=== PATIENT | female | born 1955 | race Caucasian/White ===

== ENCOUNTER 2024-07-27 06:10 | Day surgery (SDC) | payer OTHER, SELFPAY ==
[2024-07-27] VITALS (9 sets, daily range): BP systolic 123–144; BP diastolic 57–77; PULSE 67–86; RESP 16; TEMP 36.6; O2SAT 96–98; BMI 23.0
--- OUTSIDE RECORDS SUMMARY | 2024-07-27 06:13 | XMS_ITS | Encounter Summary ---
Author Organization [place] Address [address] [facility] [place] [address] Care Team Providers Care Freelance Digital Project Manager Name Role Phone Trenton Marie MD Primary Care Provide r Nancy Richardson STATIONARY STEAM ENGINEER CONCRETE ENGINEERING TECHNICIAN Unavailable [phone] Josefa Isaac PA-C Unavailable [phone] Nancy Richardson STATIONARY STEAM ENGINEER CONCRETE ENGINEERING TECHNICIAN Unavailable [phone] Nancy Richardson STATIONARY STEAM ENGINEER CONCRETE ENGINEERING TECHNICIAN Primary Care Provider + Josefa IsaacC Unavailable Natalie Cooley MD Unavailable [phone] Josefa IsaacC Unavailable [phone] Dahlia Velasquez Unavailable Kaur Mcconnell MD Unavailable Josefa IsaacC Unavailable [phone] Encounter Details Date Type Department Care Team (Late st Contact Info) Description 01/31/2021 Whit Alvarez [facility] [address] [place] [address] Nancy Richardson, STATIONARY STEAM ENGINEER CONCRETE ENGINEERING TECHNICIAN [address] [place] [address] Social History Tobacco Use Types Packs/Day Years Used Date Smoking Tobacco: Never Smokeless Tobacco: Never Alcohol Use Standard Drinks/Week Comments Yes 0 (1 standard drink = 0.6 oz pur e alcohol) PHQ-2 Answer Date Recorded PHQ-2 Score 0 09/08/2020 Comments No Sex and Gender Information Value Date Recorded Sex Assigned at Female 06/22/2019 11:03 AM BREAD JOCKEY Legal Sex Female 4:56 AM BREAD JOCKEY Gender Identity Female 06/22/2019 11:03 AM BREAD JOCKEY Sexual Orientation Straight 06/22/2019 11 :03 AM BREAD JOCKEY 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 No / Unsure 02/01/2021 11:11 AM CDT documented as of this encounter Miscellaneous Notes * Telephone Encounter - Marina Perera RN - 01/31/2021 4:50 PM CDT [employer] message to pt Marina Perera RN [facility] * Telephone Encounter - Gosia Kline RN - 01/31/2021 2:04 PM CDT Response sent to patient via [employer]. Gosia Kline RN [facility] documented in this encounter Plan of Treatment Not on file documented as of this encounter Visit Diagnoses Not on filedocumented in this encounter Care Teams Freelance Digital Project Manager Relationship Specialty Start Date End Date Trenton Marie MD [address] [place] [address] PCP - General Family Practice 02/03/13 08/16/21 Nancy Richardson APRN CONCRETE ENGINEERING TECHNICIAN [address] [address] PCP - General Nurse Practitioner - Family 08/17/21 Nancy Richardson APRN CONCRETE ENGINEERING TECHNICIAN [address] [address] Nurse Practitioner Nurse Practitioner - Family 03/29/15 Josefa Isaac PA-C [address] [place] [address] [id number] Assigned Surgical Provider 08/10/20 07/08/21 Nancy Richardson APRN CONCRETE ENGINEERING TECHNICIAN [address] [address] Assigned PCP 09/18/20 Josefa Isaac PA-C [address] [place] [address] [phone] Physician Active Directory Architect Dermatology 08/24/21 Natalie Cooley MD [address] [place] [address] [id number] Assigned Heart and Vascular Provider 11/18/21 05/17/23 Josefa Isaac PA-C [address] [place] [address] [phone] Assigned Surgical Provider 01/06/22 07/18/23 Dahlia Velasquez AuD [address] [place] [address] Historical Archeologist Audiology 10/24/22 Kaur Mcconnell MD [address] [place] [address] Assigned Surgical Provider 07/19/23 12/16/23 Josefa Isaac, PAYasminC [address] [place] [address] [phone] Assigned Surgical Provider 12/17/23 documented as of this encounter
--- OUTSIDE RECORDS SUMMARY | 2024-07-27 06:13 | XMS_ITS | Encounter Summary ---
Author Organization [place] Address [address] [facility] [place] [address] Care Team Providers Care Crane Service Technician Name Role Phone Nancy Richardson APRN OPTIONS TRADER Unavailable [phone] Nancy Richardson SILK TOP HAT BODY MAKER OPTIONS TRADER Unavailable [phone] Nancy Richardson SILK TOP HAT BODY MAKER OPTIONS TRADER Primary Care Provider + Josefa Isaac PA-C Unavailable [phone] Natalie Cooley MD Unavailable [phone] Josefa Isaac PA-C Unavailable Dahlia Velasquez AuD Unavailable [phone] Kaur Mcconnell MD Unavailable Josefa Isaac PA-C Unavailable [phone] Encounter Details Date Type Department Care Team (Late st Contact Info) Description 07/13/2022 [facility] [place] [id number] [facility] [address] [place] [address] Fracnes Lundberg Social History Tobacco Use Types Packs/Day Years Used Date Smoking Tobacco: Never Smokeless Tobacco: Never Alcohol Use Standard Drinks/Week Comments Yes 0 (1 standard drink = 0.6 oz pur e alcohol) PHQ-2 Answer Date Recorded PHQ-2 Score 0 10/04/2021 Comments No Sex and Gender Information Value Date Recorded Sex Assigned at Female 06/22/2019 11:03 AM TIMBER TREATMENT PLANT OPERATOR Legal Sex Female 4:56 AM TIMBER TREATMENT PLANT OPERATOR Gender Identity Female 06/22/2019 11:03 AM TIMBER TREATMENT PLANT OPERATOR Sexual Orientation Straight 06/22/2019 11 :03 AM TIMBER TREATMENT PLANT OPERATOR 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 Not on file Not on file Not on file Not on file Not on file documented as of this encounter Plan of Treatment Not on file documented as of this encounter Visit Diagnoses Not on filedocumented in this encounter Care Teams Crane Service Technician Relationship Specialty Start Date End Date Nancy Richardson APRN OPTIONS TRADER [address] [place] [address] PCP - General Nurse Practitioner - Family 08/17/21 Nancy Richardson APRN OPTIONS TRADER [address] [place], [place] [address] Nurse Practitioner Nurse Practitioner - Family 03/29/15 Nancy Richardson APRN OPTIONS TRADER [address] [place] [address] Assigned PCP 09/18/20 Josefa Isaac PA-C [address] [place] [address] [id number] Physician Training Specialist Dermatology 08/24/21 Natalie Cooley MD [address] [place] [address] [id number] Assigned Heart and Vascular Provider 11/18/21 05/17/23 Josefa Isaac PA-C [address] [place] [address] [phone] Assigned Surgical Provider 01/06/22 07/18/23 Dahlia Velasquez AuD [address] [place], [place] [phone] Peanut Butter Maker Audiology 10/24/22 Kaur Mcconnell MD [address] [place] [address] [id number] Assigned Surgical Provider 07/19/23 12/16/23 Josefa Isaac, PAYasminC [address] [place] [address] [phone] Assigned Surgical Provider 12/17/23 documented as of this encounter
--- OUTSIDE RECORDS SUMMARY | 2024-07-27 06:13 | XMS_ITS | Encounter Summary ---
Author Organization [place] Address [address] [facility] [place] [address] Care Team Providers Care Slackline Operator Name Role Phone Nancy Richardson APRN BRICK HANDLER Unavailable [phone] Nancy Richardson COPYRIGHT EXPERT BRICK HANDLER Unavailable [phone] Nancy Richardson COPYRIGHT EXPERT BRICK HANDLER Primary Care Provider + Josefa Isaac PA-C Unavailable Natalie Cooley MD Unavailable [phone] Josefa IsaacC Unavailable Dahlia Velasquez AuD Unavailable Kaur Mcconnell MD Unavailable Josefa Isaac PA-C Unavailable [phone] Encounter Details Date Type Department Care Team (Late st Contact Info) Description 03/09/2022 [facility] [address], [address] [place] [address] Jennifer Benitez, ROSEANNA Social History Tobacco Use Types Packs/Day Years Used Date Smoking Tobacco: Never Smokeless Tobacco: Never Alcohol Use Standard Drinks/Week Comments Yes 0 (1 standard drink = 0.6 oz pur e alcohol) PHQ-2 Answer Date Recorded PHQ-2 Score 0 10/04/2021 Comments No Sex and Gender Information Value Date Recorded Sex Assigned at Female 06/22/2019 11:03 AM INTELLIGENCE SPECIALIST Legal Sex Female 4:56 AM INTELLIGENCE SPECIALIST Gender Identity Female 06/22/2019 11:03 AM INTELLIGENCE SPECIALIST Sexual Orientation Straight 06/22/2019 11 :03 AM INTELLIGENCE SPECIALIST 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 No / Unsure 02/20/2022 4:01 PM CDT documented as of this encounter Plan of Treatment Not on file documented as of this encounter Visit Diagnoses Not on filedocumented in this encounter Care Teams Slackline Operator Relationship Specialty Start Date End Date Nancy Richardson APRN BRICK HANDLER [address] [address] PCP - General Nurse Practitioner - Family 08/17/21 Nancy Richardson APRN BRICK HANDLER [address] 460864 Nurse Practitioner Nurse Practitioner - Family 03/29/15 Nancy Richardson APRN BRICK HANDLER [address] [phone] Assigned PCP 09/18/20 Josefa Isaac PA-C [address] [place], [place] [phone] Physician Gate Cutter Dermatology 08/24/21 Natalie Cooley MD [address] [place], [place] [phone] Assigned Heart and Vascular Provider 11/18/21 05/17/23 Josefa Isaac PA-C [address] [place], [place] [phone] Assigned Surgical Provider 01/06/22 07/18/23 Dahlia Velasquez AuD [address] [place] [address] [phone] Administrative Services Assistant Audiology 10/24/22 Kaur Mcconnell MD [address] [place] [address] [address] [place], [place] 035275 Assigned Surgical Provider 07/19/23 12/16/23 Josefa Isaac PA-C [address] [place], [place] [phone] Assigned Surgical Provider 12/17/23 documented as of this encounter
--- OUTSIDE RECORDS SUMMARY | 2024-07-27 06:13 | XMS_ITS | Clinical Summary ---
Author Organization [facility] Address [address] [place] [address] Care Team Providers Care Steam Clothes Press Operator Name Role Phone No Primary/Referring, Phy Primary Care Provider Unavailable Source Comments You are receiving this document as you are listed as the primary care provider,follow-up provider, or the patient has been referred to you for consultation.This is in compliance with the Medicare and[facility] EHR Incentive Program,which states Providers who transition their patient to another setting of careor provider of care or refers their patient to another provider of care shouldprovide summary care record for each transition of care or referral. [email or web address] Allergies No known active allergies Medications No known medications Social History Tobacco Use Types Packs/Day Years Used Date Smoking Tobacco: Never Comments Unknown Sex and Gender Information Value Date Recorded Sex Assigned at Female 05/06/2024 10:00 PM CONDENSER SETTER Legal Sex Female 3:36 AM CDT Gender Identity Female 05/06/2024 10:00 PM CONDENSER SETTER Sexual Orientation Straight 05/06/2024 10 :00 PM CONDENSER SETTER Plan of Treatment Health Maintenance Due Date Last Done Comments Colon Cancer Screening Plan Due 1955 Hep C Screening (Preventive Services) 1955 Adult Preventive Visit 08/27/1973 DTaP/Tdap/Td (1 - Tdap) 08/27/1974 Cholesterol 08/27/2000 Pneumococcal 50+ Yrs (1 of 1 - PCV) 08/27/2005 Zoster/Shingles (1 of 2) 08/27/2005 Mammogram 06/08/2014 06/08/2013 COVID-19 Vaccine ( - 2023-2 5 season) 2024 Influenza (#1) 2024 RSV (1 - 1-dose 75+ series) 08/27/2030 HepA Aged Out No longer eligi ble based on patient's age to complete this topic HepB Aged Out No longer eligi ble based on patient's age to complete this topic Hib Aged Out No longer eligi ble based on patient's age to complete this topic IPV (Polio) Aged Out No longer eligi ble based on patient's age to complete this topic MCV4 Aged Out No longer eligi ble based on patient's age to complete this topic Meningococcal B Aged Out No longer el igible based on patient's age to complete this topic Insurance FULLY INSURED Care Teams Steam Clothes Press Operator Relationship Specialty Start Date End Date No Primary/Referring, y PCP - General 07/01/13
--- OUTSIDE RECORDS SUMMARY | 2024-07-27 06:13 | XMS_ITS | Clinical Summary ---
Author Organization [place] Address [address] [facility] [place] [address] Care Team Providers Care Import Export Coordinator Name Role Phone Nancy Abdalla APRN CAFETERIA WORKER Unavailable [phone] Nancy Abdalla APRN CAFETERIA WORKER Unavailable [phone] Nancy Abdalla SYSTEM SPECIALIST CAFETERIA WORKER Primary Care Provider + Josefa IsaacC Unavailable [phone] Dahlia Velasquez Unavailable [phone] Josefa Isaac-C Unavailable [phone] Allergies Active Allergy Reactions Criticality Noted Date Comments Nuts Nausea and Vomiting 09/08/2020 Macadamia in particular Medications MULTIVITAMIN TABS OR 1 TABLET DAILY Active FISH OIL Take 1,200 mg by mouth 360mg omega 3 Active calcium-vitamin D (CALTRATE) 600-400 MG-UNIT per tablet Take 1 tablet by mouth daily Active cholecalciferol (D3 SUPER STRENGTH) 50 MCG (1999) CAPS Take 50 mcg by mouth daily Takes 2 tablets 9 Active Ozswjf-FMR-L-Mn-G alex-Stuart (GLUCOSAMINE MSM COMPLEX) TABS tablet Take 1,500 mg by mouth daily 0 Active melatonin 5 MG tablet Take 1 tablet (5 mg) by mouth nightly as needed for sleep 1 Active alendronate (FOSAMAX) 35 MG tabletIndications :Age-related osteoporosis without current pathological fracture Take 1 tablet (35 mg) by mouth every 7 days 12 tablet 3 4 Active Active Problems Patient Care Coordination No te Formatting of this note migh t be different from the original. [email or web address] Problem Noted Date Diagnosed Date Age-related osteoporosis wit hout current pathological fracture 10/05/2020 CARDIOVASCULAR SCREENING; LDL GOAL LESS THAN 160 03/26/2010 Irregular bleeding 04/04/2009 Resolved Problems Problem Noted Date Diagnosed Date Resolved Date Lumbago 05/29/2016 10/26/2021 Advanced directives, counseling/discussion 03/19/2012 10/17/2021 Overview (03/19/2012): Patient states has Advance Directive and will bring in a copy to clinic. 03/19/2012 Encounters Date Type Department Care Team Description 05/11/2024 [facility] Medical Advice [address] [place] [address] Nancy Abdalla M, SYSTEM SPECIALIST CAFETERIA WORKER 05/11/2024 MyC Medical Advice Initial Department [facility] from Last 3 Months Immunizations Name Administration Dates Next Due COVID-19 MONOVALENT 12+ (Pfizer) 03/10/2021,08/25,08/18/2020 COVID-19 Monovalent 12+ (Pfizer 2021) 10/04/2021 Influenza (H1N1) 06/16/2009 Influenza (IIV3) PF 02/12/2015, 3,02/21/2012,2010,03/31/2010 Influenza Vaccine 65+ (Fluzone HD) 04/26/2023,,04/17/2021 Influenza Vaccine >6 months,quad, PF 04/05/2020, 02/26/2018,02/17/2013 Influenza Vaccine, 6+MO IM (QUADRIVALENT W/PRESERVATIVES) 03/25/2019,03/21/2017,02/21/2015 Pneumococcal 20 valent Conju gate (Prevnar 20) 04/26/2023 Pneumococcal 23 valent 05/01/2021 TDAP (Adacel,Boostrix) 01/25/2023 TDAP Vaccine (Boostrix) 03/20/2013 Zoster recombinant adjuvante d (SHINGRIX) 07/07/2018,02/26/2018 Family History Medical History Relation Comments Cancer Father lung, due to smo juan Breast Cancer Maternal Aunt 1 C.A.D. Maternal Aunt 2 Hypertension Maternal Grandmother Breast Cancer Mother Cancer Mother breast cancer ag e 53 Relation Status Comments Daughter Alive Father (Age 45) lung cancer Maternal Aunt 1 Maternal Aunt 2 Maternal Grandfather (Age 91) Maternal Grandmother (Age 91) Mother (Age 55) MVA Paternal Grandfather (Age 25) railroad accident Paternal Grandmother (Age 35) asthma at tack Son Alive Social History Tobacco Use Types Packs/Day Years Used Date Smoking Tobacco: Never Passive Smoke Exposure: Never Smokeless Tobacco: Never Tobacco Cessation:Counseling Given: No Alcohol Use Standard Drinks/Week Comments Yes 0 (1 standard drink = 0.6 oz pur e alcohol) 1-2 drinks per week Social Connection and Isolation Panel [NHANES] A nswer Date Recorded Frequency of Communication with Friends and Fami ly Not on file 10/21/2023 How often do you get together with friends or re latives? Twice a week 10/21/2023 Attends [employer] Services Not on file 10/20 Active Member of Clubs or Organizations Not on f ile 10/21/2023 Attends Club or Organization Meetings Not on edil e 10/21/2023 Marital Status Not on file 10/21/2023 PHQ-2 Answer Date Recorded PHQ-2 Score 0 10/25/2023 [facility] - Occupational Stress Questionnaire Answer Date Recorded Do you feel stress - tense, restless, nervous, or anxious, or unable to sleep at night because your mind is troubled all the time - these days? To some extent 10/21/2023 Exercise Vital Sign Answer Date Recorde d On average, how many days pe r week do you engage in moderate to strenuous exercise (like a brisk walk)? 3 days 10/21/2023 On average, how many minutes do you engage in exercise at this level? 30 min 10/21/2023 Adolescent Education Answer Date Record ed Getting School Help Needed Not on file 02/22 Food Insecurity Answer Date Recorded Within the past 12 months, d id you worry that your food would run out before you got money to buy more? No 10/21/2023 Within the past 12 months, d id the food you bought just not last and you didn t have money to get more? No 10/21/2023 Housing Stability Answer Date Recorded Do you have housing? (Meka denney is defined as stable permanent housing and does not include staying ouside in a car, in a tent, in an abandoned building, in an overnight assisted, or couch-surfing.) Yes 10/21/2023 Are you worried about losing your housing? No 10/21/2023 Financial Resource Strain Answer Date R ecorded Within the past 12 months, h ave you or your family members you live with been unable to get utilities (heat, electricity) when it was really needed? No 10/21/2023 Transportation Needs Answer Date Record ed Within the past 12 months, h as lack of transportation kept you from medical appointments, getting your medicines, non-medical meetings or appointments, work, or from getting things that you need? No 10/21/2023 Interpersonal Safety Answer Date Record ed Do you feel physically and e motionally safe where you currently live? Yes 10/25/2023 Within the past 12 months, h ave you been hit, slapped, kicked or otherwise physically hurt by someone? No 10/25/2023 Within the past 12 months, h ave you been humiliated or emotionally abused in other ways by your partner or ex-partner? 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 Not on file Not on file Not on file Not on file Not on file Not on file Not on file Last Filed Vital Signs Vital Sign Reading Time Taken Comments Blood Pressure 108/64 10/25/2023 10:04 AM CDT Pulse 80 10/25/2023 10:04 AM CDT Temperature 36.7 C (98 F) 10/25/2023 10:04 AM CDT Respiratory Rate 10 10/25/2023 10:04 AM CDT Oxygen Saturation 98% 10/25/2023 10:04 AM CDT Inhaled Oxygen Concentration - - Weight 54.9 kg (121 lb) 10/25/2023 10:04 AM CDT Height 160.9 cm (5' 3.35) 10/25/2023 10:04 AM C DT Body Mass Index 21.2 10/25/2023 10:04 AM CDT Plan of Treatment Health Maintenance Due Date Last Done Comments CT COLONOGRAPHY 1955 FIT 1955 FLEX SIG 1955 sDNA (Cologuard) 1955 RSV VACCINE (1 - Risk 60-74 years 1-dose series) 2015 COVID-19 Vaccine ( season) 2024 02/18/2023, 02/12/2022, 10/04/2021, Additional history exists INFLUENZA VACCINE (#1) 2024 , 03/23/2022, 04/17/2021, Additional history exists PHQ-2 (once per calendar year) 2024 10/25/2023, 03/13/2023, 10/23/2022, Additional history exists ANNUAL REVIEW OF HM ORDERS 10/24/202410/24, 10/23/2022, 10/04/2021 FALL RISK ASSESSMENT 10/24/2024 10/25/2023, 10/23/2022, 10/04/2021, Additional history exists MEDICARE ANNUAL WELLNESS VISIT 10/24/2024 10/25/2023, 10/23/2022, 10/04/2021, Additional history exists MAMMO SCREENING 08/11/2025 08/12/2023, 07/25, 07/18/2021, Additional history exists GLUCOSE 11/22/2025 11/22/2022, 11/24, 10/26/2021, Additional history exists LIPID 11/23/2027 11/22/2022, 02/24, 03/17/2013, Additional history exists ADVANCE CARE PLANNING 11/10/2028 11/11/2023 , 10/18/2021, 10/17/2021, Additional history exists COLONOSCOPY 06/05/2032 06/05/2022, /11/2020, 09/13/2015, Additional history exists COLORECTAL CANCER SCREENING 06/05/2032 DTAP/TDAP/TD IMMUNIZATION (3 - Td or Tdap) 01/25/2033 01/25/2023, 03/20/2013 DEXA 11/26/2037 11/26/2022, 05/0 07/2020, 04/13/2010 PAP Discontinued 02/26/2018, 03/27, 04/05/2015, Additional history exists HEPATITIS C SCREENING Completed 03/07/2018 ZOSTER IMMUNIZATION Completed 07/07/2018, 8 Pneumococcal Vaccine: 50+ Years Completed 04/26/2023, 05/01/2021 HPV IMMUNIZATION Aged Out No longer e ligible based on patient's age to complete this topic MENINGITIS IMMUNIZATION Aged Out No l onger eligible based on patient's age to complete this topic RSV MONOCLONAL ANTIBODY Aged Out No l onger eligible based on patient's age to complete this topic Procedures Procedure Name Priority Date/Time Associated Diagnosis Comments MA SCREENING BILATERAL W/ YEMI Routine 08/12/2023 10:17 AM CDT Visit for screening mammogram DX BONE DENSITY Routine 11/26/2022 3:27 PM CDT Age-related osteoporosis without current pathological fracture GLUCOSE Routine 11/22/2022 7:33 AM CDT Screening for diabetes mellitus LIPID REFLEX TO DIRECT LDL PANEL Routine 11/22/2022 7:33 AM CDT Lipid screening COLONOSCOPY - HIM SCAN 06/05/2022 12:00 AM PRODUCTION WOOD CRAFTSMAN HEPATITIS C SCREEN REFLEX TO HCV RNA QUANT AND GENOTYPE Routine 03/07/2018 8:01 AM CDT Need for hepatitis C screening test PAP IMAGED THIN LAYER SCREEN Routine 02/26/2018 11:40 AM CDT Screening for malignant neoplasm of cervix from Last 3 Months or Most Recently Relevant to Health Maintenance Results * MA Screening Bilateral w/ Yemi (08/12/2023 10:17 AM CDT) Anatomical Region Laterality Modality Breast Bilateral Mammography Impressions 08/12/2023 12:03 PM CDT IMPRESSION: ACR BI-RADS Category 1: Negative BREAST CANCER SCREENING RECOMMENDATION: Routine yearly mammography beginning at age 40 or as discussed with your provider. The results and recommendations of this examination will be communicated to the patient. I have personally reviewed the examination and initial interpretation and I agree with the findings. Gabriel Kumar MD; Kerri Blount MD Narrative 08/12/2023 12:03 PM CDT BILATERAL FULL FIELD DIGITAL SCREENING MAMMOGRAM WITH TOMOSYNTHESIS Performed on: 08/12/23 Compared to: 08/07/2022, 07/18/2021, and 07/13/2020 Technique: This study was evaluated with the assistance of Computer-Aided Detection. Breast Tomosynthesis was used in interpretation. Findings: The breasts are extremely dense, which lowers the sensitivity of mammography. There is no radiographic evidence of malignancy. No significant change. us Nancy Abdalla APRN CAFETERIA WORKER IMG MAMMOGRAPHY ORDERABL ES Final Result * DX Hip/Pelvis/Spine (11/26/2022 3:27 PM CDT) Anatomical Region Laterality Modality Dexa Bone Mineral Den sity Narrative 11/26/2022 10:02 PM CDT Images from the original result were not included. [address] [address] Phone: Fax: Impression The most negative and valid T-score of -2.6 at the level of the left femoral neck corresponds with osteoporosis according to WHO criteria for postmenopausal females and men age 50 and over. Results Lumbar spine T-score -1.3 , BMD 1.025 g/cm2. Left Femur neck T-score -2.6 , BMD 0.673 g/cm2. Left Total hip T-score -1.9 , BMD 0.770 g/cm2. Right Femur neck T-score -2.4, BMD 0.708 g/cm2. Right Total hip T-score -1.8 , BMD 0.776 g/cm2. Interval change Bone density compared to the prior study has changed at lumbar spine by +5.3% Ref 3 Percent changes not mentioned or within remaining regions are insignificant Please note that the differential diagnosis of BMD increase in the spine includes improvement due to pharmacotherapy vs inter-current progression of spine degeneration or fracture Fracture risk Fracture risk calculation is not indicated. Ref.4 FRAX may not accurately predict risk in patient on bisphosphonate and should not be used to assess the reduction in fracture risk in patients on treatment The risk of osteoporotic fracture increases approximately 2-fold for each 1.0 SD decrease in T-score. Low bone density is not the only risk factor for fracture; consider factors such as patient's age, fall risk, injury risk, previous osteoporotic fracture, family history of osteoporosis, etc. Repeat For patients eligible for Medicare, routine testing is allowed once every 2 years. Testing frequency can be increased for patients on corticosteroids. Clinical correlation recommended Technical quality Satisfactory. Principal result md ophthalmologist: Rufino Christensen MD, [facility] Division of Endocrinology and Diabetes Department of Medicine References: Ref. 1. WHO categories: T-score > -1.0 = normal . T-score -1.0 to -2.5 = low bone density T-score < -2.5 = osteoporosis . Ref. 2. 2015 ISCD official position statements: www.iscd.org. Ref. 3. Today's examination is compared to the technically similar prior study of the total hip and femur if available. Only changes deemed likely to be significant based on historical data are reported. According to the ISCD position statements, total hip rather than femoral neck regions are to be compared because larger areas give better precision. LSC = least significant changes at the [facility] (historical data) AP spine = 0.032 g/cm2 (11/19/2006) Left hip = 0.029 g/cm2 (11/08/2006) Right hip = 0.018 g/cm2 (11/08/2006) Left mid radius = 0.043 g/cm2 (11/19/2006) Please note that the differential diagnosis of increase in bone density at the lumbar spine includes improvement due to pharmacotherapy vs inter-current progression of spine degeneration or fracture. Ref. 4 Fracture risk is calculated in patients aged 40 to 90 years old with low bone density not on osteoporosis treatment. A 10 year fracture risk of 3% and higher for hip fracture and 20% and higher for major osteoporotic fracture is considered higher than acceptable risk and might be an indication for medical treatment. Ref. 5. By definition, osteoporosis may be diagnosed in the presence or with the history of a low trauma or fragility fracture. Fragility and low trauma fracture is defined as a fracture resulting from the force of a fall from a standing height or less or a bone that breaks under conditions that would not cause a normal bone to break. Ref. 6. NOF Physician's Guideline Website address: www.nof.org. us Nancy Abdalla APRN CAFETERIA WORKER IMG DEXA ORDERABLES Jennifer l Result * (ABNORMAL) Lipid panel reflex to direct LDL Fasting (11/22/2022 7:33 AM CDT) [facility] Cholesterol 265(H) <200 mg/dL 11/22/2022 7:03 PM CDT [facility] Triglycerides 46 <150 mg/dL 11/22/2022 7:03 PM CDT [facility] Direct Measure HDL 123 >=50 mg/dL 11/22/2022 7:03 PM CDT [facility] LDL Cholesterol Calculated 133(H) <=100 mg/dL 11/22/2022 7:03 PM CDT [facility] Non HDL Cholesterol 142(H) <130 mg/dL 11/22/2022 7:03 PM CDT [facility] Blood STRUCTURE OF RIGHT UPPER LIMB / Unknown Venipuncture / Unknown 11/22/2022 7:33 AM CDT 11/22/2022 7:33 AM CDT Narrative [facility] - 11/22/2022 7:03 PM CDT Cholesterol Desirable: <200 mg/dL Triglycerides Normal: Less than 150 mg/dL Borderline High: 150-199 mg/dL High: 200-499 mg/dL Very High: Greater than or equal to 500 mg/dL Direct Measure HDL Female: Greater than or equal to 50 mg/dL Male: Greater than or equal to 40 mg/dL LDL Cholesterol Desirable: <100mg/dL Above Desirable: 100-129 mg/dL Borderline High: 130-159 mg/dL High: 160-189 mg/dL Very High: >= 190 mg/dL Non HDL Cholesterol Desirable: 130 mg/dL Above Desirable: 130-159 mg/dL Borderline High: 160-189 mg/dL High: 190-219 mg/dL Very High: Greater than or equal to 220 mg/dL Nancy Abdalla APRN CAFETERIA WORKER LAB - BLOOD ORDERABLES F inal Result [facility] Lab [address] [facility], [address] [address], [facility] [phone] * Glucose (11/22/2022 7:33 AM CDT) Pathologist [facility] Glucose 92 70 - 99 mg/dL 11/22/2022 7:03 PM CDT [facility] Patient Fasting > 8hrs? Yes 11/22/2022 7:03 PM CDT [facility] Blood STRUCTURE OF RIGHT UPPER LIMB / Unknown Venipuncture / Unknown 11/22/2022 7:33 AM CDT 11/22/2022 7:33 AM CDT Nancy Abdalla APRN CAFETERIA WORKER LAB - BLOOD ORDERABLES F inal Result Performing Organization Address City/[facility] Co de Phone Number LABORATORY [facility] Core Lab [address] [facility], [address] [address], [facility] [phone] * COLONOSCOPY - HIM SCAN (06/05/2022 12:00 AM PRODUCTION WOOD CRAFTSMAN) 06/05/2022 us Provider Outside PROCEDURES Final Result * Hepatitis C Screen Reflex to RNA FUTURE anytime (03/07/2018 8:01 AM CDT) Hepatitis C Antibody Nonreactive NR^Nonre active 03/08/2018 1:52 PM CDT [facility] Comment: Assay performance characteristics have not been established for newborns, infants, and children Blood specimen (specimen) 03/07/2018 8:01 AM CDT 03/07/2018 8:02 AM CDT us Nancy Abdalla SYSTEM SPECIALIST CAFETERIA WORKER LAB - BLOOD ORDERABLES F inal Result [address] [address] * Pap imaged thin layer screen with HPV - recommended age 30 - 65 years (select HPV order below) (02/26/2018 11:40 AM CDT) PAP NIL MILA Yost Report Patient Name: YECENIA VARGHESE MR#: [id number] Specimen #: [id number] Collected: 02/26/2018 Received: 02/27/2018 Reported: 03/03/2018 08:29 Ordering Phy(s): NANCY ABDALLA For improved result formatting, select 'View Enhanced Report Format' under Linked Documents section. SPECIMEN/STAIN PROCESS: Pap imaged thin layer prep screening (Surepath, FocalPoint with guided screening) Pap-Cyto x 2, HPV ordered x 1 SOURCE: Cervical, endocervical Pap imaged thin layer prep screening (Surepath, FocalPoint with guided screening) SPECIMEN ADEQUACY: Satisfactory for evaluation. -Transitional zone component could not be determined due to atrophy. CYTOLOGIC INTERPRETATION: Negative for intraepithelial lesion or malignancy Electronically signed out by: CLIFFORD Beaulieu (ASCP) Processed and screened at [facility] CLINICAL HISTORY: LMP: 07/02/2009 A previous normal pap Date of Last Pap: 04/05/2015, Papanicolaou Test Limitations: Cervical cytology is a screening test with limited sensitivity; regular screening is critical for cancer prevention; Pap tests are primarily effective for the diagnosis/preventi on of squamous cell carcinoma, not adenocarcinomas or other cancers. TESTING LAB LOCATION: [address] [phone] COLLECTION SITE: Client: [facility] Location: [facility] (B) COPATH Cytologic material (specimen) 02/26/2018 11:40 AM CDT 02/27/2018 8:44 AM CDT us Nancy Abdalla SYSTEM SPECIALIST CAFETERIA WORKER LAB - OPTIME CLINICAL SP ECIMEN Final Result Performing Organization Address City/State/[facility] Co de Phone Number COPATH from Last 3 Months or Most Recently Relevant to Health Maintenance Insurance [employer] MEDICARE ADVANTAGE [employer] MEDICARE ADVANTAGE Advance Directives For more information, please contact: [phone] Documents on File Type Date Recorded 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 Advance Directives and Living Will 10/17/2021 Health Care Directiv e 10/03/2021 Healthcare Agents on File Name Relationship Healthcare Agent Relationship Communication Kayleen Varghese Daughter Health Care Agent [email or web address] Oswald Varghese Son First Alternate Health Care Agent [email or web address] Care Teams Import Export Coordinator Relationship Specialty Start Date End Date Nancy Abdalla APRN CAFETERIA WORKER [address] [facility] [address] [place] [address] PCP - General Nurse Practitioner - Family 08/17/21 Nancy Abdalla APRN CAFETERIA WORKER [address] [address] [place] [address] Nurse Practitioner Nurse Practitioner - Family 03/29/15 Nancy Abdalla, FRANK CAFETERIA WORKER [address] [address] [place] [address] Assigned PCP 09/18/20 Josefa Isaac PA-C [address] [place], [place] [phone] Physician Wood Web Weaving Machine Operator Dermatology 08/24/21 Dahlia Velasquez AuD [address] [place], [place] [id number] Parachute Line Tier Audiology 10/24/22 Josefa Isaac PA-C [address] [place] [address] Assigned Surgical Provider 12/17/23
--- OUTSIDE RECORDS SUMMARY | 2024-07-27 06:13 | XMS_ITS | Encounter Summary ---
Author Organization [place] Address [address] [facility] [place] [address] Care Team Providers Care Coat Baster Name Role Phone Trenton Marie MD Primary Care Provide r Nancy Richardson SLOT FLOORPERSON LITHOGRAPHIC PROOFER APPRENTICE Unavailable [phone] Nancy Richardson SLOT FLOORPERSON LITHOGRAPHIC PROOFER APPRENTICE Unavailable [phone] Josefa Isaac PA-C Unavailable Josefa Isaac PA-C Unavailable [phone] Nancy Richardson SLOT FLOORPERSON LITHOGRAPHIC PROOFER APPRENTICE Unavailable [phone] Nancy Richardson SLOT FLOORPERSON LITHOGRAPHIC PROOFER APPRENTICE Primary Care Provider + Josefa Isaac-C Unavailable [phone] Natalie Cooley MD Unavailable [phone] Josefa Isaac PA-C Unavailable [phone] Dahlia Velasquez Unavailable [phone] Kaur Mcconnell MD Unavailable Josefa Isaac PA-C Unavailable [phone] Encounter Details Date Type Department Care Team (Late st Contact Info) Description 03/21/2020 [facility] [address] [phone] Nancy Richardson APRN LITHOGRAPHIC PROOFER APPRENTICE [address] [address] Social History Tobacco Use Types Packs/Day Years Used Date Smoking Tobacco: Never Smokeless Tobacco: Never Alcohol Use Standard Drinks/Week Comments Yes 0 (1 standard drink = 0.6 oz pur e alcohol) PHQ-2 Answer Date Recorded PHQ-2 Score 0 06/04/2018 Comments No Sex and Gender Information Value Date Recorded Sex Assigned at Female 06/22/2019 11:03 AM TELEGRAPHIC TYPEWRITER REPAIRER Legal Sex Female 4:56 AM TELEGRAPHIC TYPEWRITER REPAIRER Gender Identity Female 06/22/2019 11:03 AM TELEGRAPHIC TYPEWRITER REPAIRER Sexual Orientation Straight 06/22/2019 11 :03 AM TELEGRAPHIC TYPEWRITER REPAIRER 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 Not on file Not on file Not on file Not on file Not on file Not on file documented as of this encounter Miscellaneous Notes * Telephone Encounter - Trenton Marie MD - 03/21/2020 12:39 PM CDT Based on her description she does not need to quarantine * Telephone Encounter - Navdeep Yeager RN - 03/21/2020 12:04 PM CDT Routing to provider - Debra - please review and advise as appropriate Patient reporting possible exposure - do you recommend quarantine as she is stating she was not within 6 ft documented in this encounter Plan of Treatment Not on file documented as of this encounter Visit Diagnoses Not on filedocumented in this encounter Care Teams Coat Baster Relationship Specialty Start Date End Date Trenton Marie MD [address] [facility] [address] [place] [address] PCP - General Family Practice 02/03/13 08/16/21 Nancy Richardson APRN LITHOGRAPHIC PROOFER APPRENTICE [address] [facility] [address] [place] [address] PCP - General Nurse Practitioner - Family 08/17/21 Nancy Richardson APRN LITHOGRAPHIC PROOFER APPRENTICE [address] [address] Nurse Practitioner Nurse Practitioner - Family 03/29/15 Nancy Richardson APRN LITHOGRAPHIC PROOFER APPRENTICE [address] [address] Assigned PCP 04/10/15 09/17/20 Josefa Isaac PA-C [address] [place] [address] Assigned Pediatric Specialist Provider 03/18/20 06/26/20 Josefa Isaac PA-C [address] [place] [address] [id number] Assigned Surgical Provider 08/10/20 07/08/21 Nancy Richardson APRN LITHOGRAPHIC PROOFER APPRENTICE [address] [address] Assigned PCP 09/18/20 Josefa Isaac PA-C [address] [place] [address] [phone] Physician Project Financial Analyst Dermatology 08/24/21 Natalie Cooley MD [address] [place] [address] [phone] Assigned Heart and Vascular Provider 11/18/21 05/17/23 Josefa Isaac PA-C [address] [place] [address] 577695 Assigned Surgical Provider 01/06/22 07/18/23 Dahlia Vealsquez AuD [address] [place] [address] [id number] Bus Starter Audiology 10/24/22 Kaur Mcconnell MD [address] [place] [address] Assigned Surgical Provider 07/19/23 12/16/23 Josefa Isaac PA-C [address] [place] [address] [phone] Assigned Surgical Provider 12/17/23 documented as of this encounter
--- OUTSIDE RECORDS SUMMARY | 2024-07-27 06:13 | XMS_ITS | Encounter Summary ---
Author Organization [place] Address [address] [facility] [place] [address] Care Team Providers Care Orthopedic Tech Name Role Phone Nancy Richardson APRN APPLICATION SYSTEMS ENGINEER Unavailable [phone] Nancy Richardson BACTERIOLOGY RESEARCH ASSISTANT APPLICATION SYSTEMS ENGINEER Unavailable [phone] Nancy Richardson BACTERIOLOGY RESEARCH ASSISTANT APPLICATION SYSTEMS ENGINEER Primary Care Provider + Josefa Isaac PA-C Unavailable Dahlia Velasquez Unavailable Kaur Mcconnell MD Unavailable Josefa Isaac-C Unavailable [phone] Encounter Details Date Type Department Care Team (Late st Contact Info) Description 08/07/2023 [facility] [address] [facility] [address] [place] [phone] Frances Lundberg Social History Tobacco Use Types Packs/Day Years Used Date Smoking Tobacco: Never Passive Smoke Exposure: Never Smokeless Tobacco: Never Alcohol Use Standard Drinks/Week Comments Yes 0 (1 standard drink = 0.6 oz pur e alcohol) 1-2 drinks per week PHQ-2 Answer Date Recorded PHQ-2 Score 0 03/13/2023 Adolescent Education Answer Date Record ed Getting School Help Needed Not on file 02/22 Comments No Sex and Gender Information Value Date Recorded Sex Assigned at Female 06/22/2019 11:03 AM SUMMER CLERK Legal Sex Female 4:56 AM SUMMER CLERK Gender Identity Female 06/22/2019 11:03 AM SUMMER CLERK Sexual Orientation Straight 06/22/2019 11 :03 AM SUMMER CLERK 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 Not on file Not on file Not on file Not on file Not on file Not on file documented as of this encounter Plan of Treatment Not on file documented as of this encounter Visit Diagnoses Not on filedocumented in this encounter Care Teams Orthopedic Tech Relationship Specialty Start Date End Date Nancy Richardson APRN APPLICATION SYSTEMS ENGINEER [address] [address] [place], [place] [address] PCP - General Nurse Practitioner - Family 08/17/21 Nancy Richardson APRN APPLICATION SYSTEMS ENGINEER [address] [address] [place], [place] [address] Nurse Practitioner Nurse Practitioner - Family 03/29/15 Nancy Richardson APRN APPLICATION SYSTEMS ENGINEER [address] [address] [place], [place] [address] Assigned PCP 09/18/20 Josefa Isaac PA-C [address] [place] [address] [phone] Physician Director Metabolism Dermatology 08/24/21 Dahlia Velasquez AuD [address] [place] [address] Airline Attendant Audiology 10/24/22 Kaur Mcconnell MD [address] [place] [address] [address] [place], [place] 565[address] Assigned Surgical Provider 07/19/23 12/16/23 Josefa Isaac PA-C [address] [place] [address] Assigned Surgical Provider 12/17/23 documented as of this encounter
--- OUTSIDE RECORDS SUMMARY | 2024-07-27 06:13 | XMS_ITS | Encounter Summary ---
Author Organization [place] Address [address] [facility] [place] [address] Care Team Providers Care Administrative Job Titles Name Role Phone Nancy Richardson APRN SWAHILI TEACHER Unavailable [phone] Nancy Richardson APRN SWAHILI TEACHER Unavailable [phone] Nancy Richardson BROWN SOURER SWAHILI TEACHER Primary Care Provider + Josefa Isaac PA-C Unavailable [phone] Dahlia Velasquez AuD Unavailable [phone] Josefa IsaacC Unavailable [phone] Encounter Details Date Type Department Care Team (Late st Contact Info) Description 05/11/2024 [facility] Medical Advice Initial Department Frances Lundberg Social History Tobacco Use Types [...] Answer Date Recorded PHQ-2 Score 0 10/25/2023 [facility] - Occupational Stress [...] Date Recorded Do you have housing? 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 Not on file Not on file Not on file Not on file Not on file documented as of this encounter Plan of Treatment Not on file documented as of this encounter Visit Diagnoses Not on filedocumented in this encounter Care Teams Administrative Job Titles Relationship Specialty Start Date End Date Nancy Richardson APRN SWAHILI TEACHER [address] [place] [address] PCP - General Nurse Practitioner - Family 08/17/21 Nancy Richardson APRN SWAHILI TEACHER [address] [place] [address] Nurse Practitioner Nurse Practitioner - Family 03/29/15 Nancy Richardson APRN SWAHILI TEACHER [address] [place] [address] Assigned PCP 09/18/20 Josefa Isaac PA-C [address] [place] [address] 442165 Physician Cargo Router Dermatology 08/24/21 Dahlia Velasquez AuD [address] [place] [address] [id number] Profile Mill Operator Tape Control Audiology 10/24/22 Josefa Isaac PA-C [address] [place] [address] Assigned Surgical Provider 12/17/23 documented as of this encounter
--- OUTSIDE RECORDS SUMMARY | 2024-07-27 06:13 | XMS_ITS | Encounter Summary ---
Author Organization [place] Address [address] [facility] [place] [address] Care Team Providers Care Pig Machine Crane Operator Name Role Phone Nancy Richardson APRN TREKKING GUIDE Unavailable [phone] Nancy Richardson APRN TREKKING GUIDE Unavailable Nancy Richardson BILINGUAL TRAINER TREKKING GUIDE Primary Care Provider + Josefa Isaac PA-C Unavailable [phone] Natalie Cooley MD Unavailable [phone] Josefa Isaac PA-C Unavailable Dahlia Velasquez Unavailable Kaur Mcconnell MD Unavailable Josefa Isaac PA-C Unavailable Encounter Details Date Type Department Care Team (Late st Contact Info) Description 02/28/2022 [facility] [address] [place] [address] Nancy Richardson APRN TREKKING GUIDE [address] [place] [address] Social History Tobacco Use Types Packs/Day Years Used Date Smoking Tobacco: Never Smokeless Tobacco: Never Alcohol Use Standard Drinks/Week Comments Yes 0 (1 standard drink = 0.6 oz pur e alcohol) PHQ-2 Answer Date Recorded PHQ-2 Score 0 10/04/2021 Comments No Sex and Gender Information Value Date Recorded Sex Assigned at Female 06/22/2019 11:03 AM CONSULTING IT ARCHITECT Legal Sex Female 4:56 AM CONSULTING IT ARCHITECT Gender Identity Female 06/22/2019 11:03 AM CONSULTING IT ARCHITECT Sexual Orientation Straight 06/22/2019 11 :03 AM CONSULTING IT ARCHITECT 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 No / Unsure 02/20/2022 4:01 PM CDT documented as of this encounter Plan of Treatment Not on file documented as of this encounter Visit Diagnoses Not on filedocumented in this encounter Care Teams Pig Machine Crane Operator Relationship Specialty Start Date End Date Nancy Richardson APRN TREKKING GUIDE [address] [place] [address] PCP - General Nurse Practitioner - Family 08/17/21 Nancy Richardson APRN TREKKING GUIDE [address] [place] [address] Nurse Practitioner Nurse Practitioner - Family 03/29/15 Nancy Richardson APRN TREKKING GUIDE [address] [place] [address] Assigned PCP 09/18/20 Josefa Isaac, PAYasminC [address] [place] [address] Physician Straw Boss Dermatology 08/24/21 Natalie Cooley MD [address] [place] [address] Assigned Heart and Vascular Provider 11/18/21 05/17/23 Josefa Isaac PA-C [address] [place] [address] Assigned Surgical Provider 01/06/22 07/18/23 Dahlia Velasquez AuD [address] [place] [address] Capsule Maker Audiology 10/24/22 Kaur Mcconnell MD [address] [place] [address] Assigned Surgical Provider 07/19/23 12/16/23 Josefa Isaac PA-C [address] [place] [address] Assigned Surgical Provider 12/17/23 documented as of this encounter
--- OUTSIDE RECORDS SUMMARY | 2024-07-27 06:13 | XMS_ITS | Encounter Summary ---
Author Organization [place] Address [address] [facility] [place] [address] Care Team Providers Care Clinical Registered Nurse Name Role Phone Nancy Richardson APRN LABORER CONCRETE PAVING Unavailable [phone] Nancy Richardson APRN LABORER CONCRETE PAVING Unavailable Nancy Richardson EQUIPMENT MAINT TECH LABORER CONCRETE PAVING Primary Care Provider + Josefa Isaac PA-C Unavailable [phone] Dahlia Velasquez Unavailable [phone] Kaur Mcconnell MD Unavailable Josefa IsaacC Unavailable Encounter Details Date Type Department Care Team (Late st Contact Info) Description 11/11/2023 [facility] [address] [place] [address] Nancy Richardson APRN LABORER CONCRETE PAVING [address] [place] [address] Social History Tobacco Use Types [...] re latives? Twice a week 10/21/2023 Attends [employer] Services Not on file 10/20 Active Member of Clubs or Organizations Not on f ile 10/21/2023 Attends Club or Organization Meetings Not on edil e 10/21/2023 Marital Status Not on file 10/21/2023 PHQ-2 Answer Date Recorded PHQ-2 Score 0 10/25/2023 [facility] ions[facility] Health - Occupational Stress Questionnaire Answer Date [...] in an abandoned building, in an overnight mcc, or couch-surfing.) Yes 10/21/2023 Are you worried [...] Sex Assigned at Female 06/22/2019 11:03 AM STRATEGIC MANAGER Legal Sex Female 4:56 AM STRATEGIC MANAGER Gender Identity Female 06/22/2019 11:03 AM STRATEGIC MANAGER Sexual Orientation Straight 06/22/2019 11 :03 AM STRATEGIC MANAGER 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 Not on file Not on file Not on file Not on file Not on file documented as of this encounter Plan of Treatment Not on file documented as of this encounter Visit Diagnoses Not on filedocumented in this encounter Care Teams Clinical Registered Nurse Relationship Specialty Start Date End Date Nancy Richardson APRN LABORER CONCRETE PAVING [address] [phone] PCP - General Nurse Practitioner - Family 08/17/21 Nancy Richardson APRN LABORER CONCRETE PAVING [address] [place] [address] Nurse Practitioner Nurse Practitioner - Family 03/29/15 Nancy Richardson APRN LABORER CONCRETE PAVING [address] [place], [place] [address] Assigned PCP 09/18/20 Josefa Isaac PA-C [address] [place] [address] [phone] Physician Training Lead Dermatology 08/24/21 Dahlia Velasquez AuD [address] [place] [address] [phone] Pacu Rn Audiology 10/24/22 Kaur Mcconnell MD [address] [place] [address] [address] [place] [address] Assigned Surgical Provider 07/19/23 12/16/23 Josefa Isaac PA-C [address] [place] [address] [phone] Assigned Surgical Provider 12/17/23 documented as of this encounter
--- OUTSIDE RECORDS SUMMARY | 2024-07-27 06:13 | XMS_ITS | Encounter Summary ---
Author Organization [place] Address [address] [facility] [place] [address] Care Team Providers Care Brim Cutter Name Role Phone Nancy Richardson APRN LAB TECH Unavailable [phone] Nancy Richardson REVIEW TRAINER LAB TECH Unavailable [phone] Nancy Richardson REVIEW TRAINER LAB TECH Primary Care Provider + Josefa Iasac PA-C Unavailable Natalie Cooley MD Unavailable [phone] Josefa Isaac PA-C Unavailable [phone] Dahlia Velasquez AuD Unavailable [phone] Kaur Mcconnell MD Unavailable Josefa Isaac PA-C Unavailable [phone] Encounter Details Date Type Department Care Team (Late st Contact Info) Description 10/01/2021 [facility] Medical Advice Initial Department Frances Lundberg Social History Tobacco Use Types Packs/Day Years Used Date Smoking Tobacco: Never Smokeless Tobacco: Never Alcohol Use Standard Drinks/Week Comments Yes 0 (1 standard drink = 0.6 oz pur e alcohol) PHQ-2 Answer Date Recorded PHQ-2 Score 0 10/04/2021 Comments No Sex and Gender Information Value Date Recorded Sex Assigned at Female 06/22/2019 11:03 AM FIRE ALARM TECHNICIAN Legal Sex Female 4:56 AM FIRE ALARM TECHNICIAN Gender Identity Female 06/22/2019 11:03 AM FIRE ALARM TECHNICIAN Sexual Orientation Straight 06/22/2019 11 :03 AM FIRE ALARM TECHNICIAN 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 No / Unsure 10/04/2021 3:15 PM CDT documented as of this encounter Plan of Treatment Not on file documented as of this encounter Visit Diagnoses Not on filedocumented in this encounter Care Teams Brim Cutter Relationship Specialty Start Date End Date Nancy Richardson APRN LAB TECH [address] [facility] [address] [address] PCP - General Nurse Practitioner - Family 08/17/21 Nancy Richardson APRN LAB TECH [address] [facility] [address] [address] Nurse Practitioner Nurse Practitioner - Family 03/29/15 Nancy Richardson APRN LAB TECH [address] [address] Assigned PCP 09/18/20 Josefa Isaac PA-C [address] [place] [address] [phone] Physician Hairspring Assembler Dermatology 08/24/21 Natalie Cooley MD [address] [place] [address] [phone] Assigned Heart and Vascular Provider 11/18/21 05/17/23 Josefa Isaac PA-C [address] [place] [address] Assigned Surgical Provider 01/06/22 07/18/23 Dahlia Velasquez AuD [address] [place] [address] Label Remover Audiology 10/24/22 Kaur Mcconnell MD [address] [place] [phone] Assigned Surgical Provider 07/19/23 12/16/23 Josefa Isaac, PAYasminC [address] [place] [address] Assigned Surgical Provider 12/17/23 documented as of this encounter
[2024-07-27] MEDS: LIDOCAINE 1%-EPI 1:100,000 20 ML INFILTRATI (06:55)
[2024-07-27] MEDS: BUPIVACAINE 0.5% 30 ML INJECTION (06:55)
[2024-07-27] MEDS: ETHYL CHLORIDE 1 APPLICATION 1 APPLIC TOPICAL (06:55)
--- NOTE | 2024-07-27 07:10 | SUR.PREOP ---
SAME DAY SURGERY LOCAL INJECTION SITE VERIFICATION WAS PERFORMED BY SURGEON/PA AND PATIENT PRIOR TO LOCAL ANESTHETIC BEING INJECTED TO OPERATIVE SITE.
[2024-07-27] MEDS: BACITRACIN OINTMENT BULK TUBE 1 APPLIC TOPICAL (07:40)
--- NOTE | 2024-07-27 07:47 | PM.ORPRC ---
Procedure Note Date of procedure: 07/27/24 Procedure: PREOPERATIVE DIAGNOSIS: 1. Left carpal tunnel syndrome POSTOPERATIVE DIAGNOSIS: 1. Left carpal tunnel syndrome PROCEDURE: 1. Left open carpal tunnel release SURGEON: Raffy De Guzman MD. CIGARETTE MAKING MACHINE CATCHER: NIC Simpson ANESTHESIA: Local anesthetic (50:50 mixture of 2% lidocaine with epi and 0.5% marcaine plain) - 10ml total IMPLANTS: None EBL: 2 mL TOURNIQUET: None COMPLICATIONS: None evident INDICATIONS: The patient is a pleasant 60-year-old female who has experienced left hand numbess/tingling affecting the radial 3.5 digits for multiple months. It has progressively gotten worse. Nonoperative management has been tried and failed, and therefore surgery was recommended. DESCRIPTION OF PROCEDURE: Following a thorough discussion of risks, benefits, and alternatives consent was obtained and the operative extremity was marked. The patient was brought to the operating room and placed supine on the operating table. Local anesthesia induction was undertaken in preop holding. No antibiotics were administered as this was planned to be a local case only. Proper time-out was performed identifying proper patient, site, and procedure. The operative extremity was prepped and draped in the appropriate sterile fashion using ChloraPrep. An incision was made in line with the radial border of the ring finger beginning 1 cm distal to the distal wrist crease and progressing for another 2.5cm distal. Caution was taken to stay proximal to Ring's cardinal line. Sharp incision through the skin, subcutaneous tissue, and palmar fascia was performed. The thenar musculature was bluntly elevated off the transverse carpal ligament. The ligament was directly visualized, and divided sharply with a 15 blade. This was released from its most proximal to the most distal extent. Metzenbaum scissor was also utilized to release the fascia extension proximally. We confirmed complete release of the transverse carpal ligament. Closure was performed with 4-O nylon in interrupted fashion. Soft dressings were applied, and the patient was transferred to the recovery room in stable condition. PLAN: 1. Encourage elevation of the operative extremity. 2. Range of motion of the fingers and hand/wrist as tolerated. 3. Ibuprofen/acetaminophen and/or oxycodone as needed for pain control. 4. Follow up with PA visit or nurse visit in 12-16 days for wound check and suture removal.
== END 2024-07-27 08:13 | disposition home or self-care (01) ==
LOC: OR 06:11
PROVIDERS: PCP Family Medicine; Visit Provider Orthopaedic Surgery Sports Medicine
PROC: (CPT 64721; principal; 2024-07-27 07:15)
DX: G56.02 Carpal tunnel syndrome, left upper limb (principal)
CPT/HCPCS: 64721; J0665

== ENCOUNTER 2024-09-04 13:57 | Outpatient (CLI) | payer OTHER, SELFPAY ==
--- NOTE | 2024-09-04 14:00 | CRLHL7_ITS ---
For Patients: As a result of the Century Cures Act, medical imaging exams and procedure reports are released immediately into your electronic medical record. You may view this report before your referring provider. If you have questions, please contact your health care provider. INDICATION: BILATERAL SCREENING MAMMOGRAM, ASYMPTOMATIC 69 Y/O FEMALE COMPARISON: 08/12/23, 08/07/22, 07/13/20 TECHNIQUE: CC and MLO views were obtained. These mammographic images have been obtained using full-field digital technique. These mammographic images were interpreted with the benefit of computer aided detection and tomosynthesis. BREAST COMPOSITION: The breasts are heterogeneously dense, which may obscure small masses. FINDINGS: No suspicious findings. ASSESSMENT: BI-RADS 1 Negative RECOMMENDATION: Annual screening mammogram. A lay language report of this examination will be provided to the patient. Dictated by: Westley Vyas MD @ 09/14/2024 13:15:40 (Electronically Signed)
== END 2024-09-04 13:58 | disposition home or self-care (01) ==
LOC: MAMMO 13:58
PROVIDERS: PCP Family Medicine; Visit Provider Family Medicine
DX: Z12.31 Encounter for screening mammogram for malignant neoplasm of breast (principal); R92.333 Mammographic heterogeneous density, bilateral breasts
CPT/HCPCS: 77063; 77067

== ENCOUNTER 2024-10-30 08:30 | Outpatient (CLI) | payer OTHER, SELFPAY | END 2024-10-30 08:31 | disposition home or self-care (01) | LOC: NFLDREF 10-31 10:22 | PROVIDERS: PCP Family Medicine; Referring Provider Family Medicine; Visit Provider Family Medicine | DX: M81.0 Age-related osteoporosis without current pathological fracture (principal); R53.83 Other fatigue; Z13.6 Encounter for screening for cardiovascular disorders | CPT/HCPCS: 80053; 80061; 82306 ==

== ENCOUNTER 2025-02-02 12:30 | Outpatient (RCR) | payer OTHER, SELFPAY ==
--- NOTE | 2024-12-01 18:54 | OT.OPOE ---
OT Outpatient Ortho Eval OT Outpatient Ortho Eval* Start: 12/01/24 07:17 Freq: Status: Active Protocol: Document 12/01/24 07:17 AMB (Rec: 12/01/24 18:51 AMB [id number]) E-signed By January Mckeon, OTR/L, CLT, ELECTRON GUN ASSEMBLER OT OP Ortho Eval Details Complexity Complexity Low Insurance Information Insurance [facility] Information Insurance SOC: 12/01/24 Information Comments UPOC due: 03/01/2025 Outpatient History/Precautions Current Condition/Medical Diagnosis Referring Provider Dr De Guzman Medical Diagnoses Z98.890 Other specified postprocedural states (CTR) Treatment Diagnosis M25.632 Stiffness LUE wrist R53.1 Weakness LUE M79.642 Pain in Left Hand Date of Onset 07/27/2024 DOS for CTR Medical Conditions Osteoporosis Other Conditions Active Problems (Updated 09/29/24 @ 13:19 by Shyanne Archer) Trigger finger, right middle finger (Acute) M65.331 - Trigger finger, right middle finger (ICD-10) History of carpal tunnel surgery of left wrist (Acute 07/27/24) Left open carpal tunnel release. Dr. De Guzman, 07/27/24 Z98.890 - Other specified postprocedural states (ICD-10 ) Urge incontinence (Chronic) pelvic PT helped N39.41 - Urge incontinence (ICD-10) Tinnitus (Chronic) minor proiblem only H93.19 - Tinnitus, unspecified ear (ICD-10) Osteoporosis (Chronic 2021) on fosamax M81.0 - Age-related osteoporosis without current pathological fracture (ICD-10) Hearing problem (Chronic) could get hearing aids H91.90 - Unspecified hearing loss, unspecified ear (ICD -10) Medical History (Updated 09/29/24 @ 13:19 by Shyanne Archer) Left carpal tunnel syndrome (1989) G56.02 - Carpal tunnel syndrome, left upper limb (ICD- 10) Urge incontinence N39.41 - Urge incontinence (ICD-10) Tinnitus H93.19 - Tinnitus, unspecified ear (ICD-10) Hearing problem H91.90 - Unspecified hearing loss, unspecified ear (ICD -10) Osteoporosis (2021) M81.0 - Age-related osteoporosis without current pathological fracture (ICD-10) Rectal polyp K62.1 - Rectal polyp (ICD-10) Complication of anesthesia T88.59XA - Other complications of anesthesia, initial encounter (ICD-10) Surgical History (Updated 08/04/24 @ 10:13 by Shyanne Archer) History of carpal tunnel surgery of left wrist () Z98.890 - Other specified postprocedural states (ICD-10 ) Hx of foot surgery (1968) Z98.890 - Other specified postprocedural states (ICD-10 ) History of tubal ligation (1993) Z98.51 - Tubal ligation status (ICD-10) Medical/Functional History Medical History Yes Reviewed Prior Level of Prior to CTR pt had a long standing hx of median nn Function/Mobility dysfunction / pain dating back to her in 1988 . However, prior to surgery, pt states she did have times where she had no pain, no numbness, no sxs of CTS . Currently, pt states she has some sort of discomfort / irritation 100% of the time. Social History Employment Status Retired Hobbies [employer] Enjoys riding bike, doing Yoga Ortho Subjective Subjective Subjective Pt states she has been very disappointed since her CTR surgery back in July. Pt feels like her symptoms have gotten worse instead of better. Pt currently has discomfort to varying degrees all the time. Pt states she cannot sleep, she cannot operate the car seat reginaldo on her grandchildren's car seats, she has difficulty with food prep as it's hard to use a knife, she cannot use hand tools, and she is not really able to sew as she has trouble threading needles and using her stencil cutter machine. Pt states she has nerve pain from her finger tips sometimes all the way up her arm. Pt has pain in the center of her palm and wrist, rates it at 4/10. Pt states her MF is numb 100% of the time also the radial aspect of her RF is numb most of the time. Goniometric Comments Goniometric Comments Goniometric Comments 12/01/24 AROM of the LUE is WNL throughout with the exception of her wrist which is limited to 50deg of flexion and 45 deg of extension. Hand Pinch/Speech Therapy Assistant Strength Hand Pinch/Speech Therapy Assistant Strength Hand Pinch/Speech Therapy Assistant Left Hand,Right Hand Strength Left Hand Speech Therapy Assistant Strength 40 Position 1 in Elbow Flexion (lbs) Lateral Pinch 10 Strength (lbs) Three Point Pinch ( 7 lbs) Right Hand Speech Therapy Assistant Strength 60 Position 1 in Elbow Flexion (lbs) Lateral Pinch 13 Strength (lbs) Three Point Pinch ( 10 lbs) Comments Comments 12/01/24 Pt has increased pain with 3pt pinch on the LUE. Upper Extremity Special Tests Median Nerve-Carpal Tunnel Wrist Tinel Test Positive Left Durkan's Test Positive Left Upper Extremity Special Tests Comments Comments 12/01/24 Tingling in the LUE is exacerbated by application of stretch and traction of the skin in the volar forearm as well as in the volar wrist. OT Problems Problems Problems Decreased Strength,Decreased Range of Motion,Pain, Lifting,Gripping,Pinching Other Problems Opening Containers,Dressing Patient Potential Good Assessment Assessment Assessment Pt is a pleasant 69yo referred to OT to address paresthesia, pain, stiffness, and limited AROM in the LUE hand following CTR surgery. Provocative testing continues to indicate irritation of the median nerve as well as suggestion of myofascial component with skin pressure and traction. Pt is limited in her ability to complete ADLs and IALDs such as car seat buckle, food prep, utilizing hand tools, sewing, and sleep. Pt will benefit from skilled OT intervention to address pain, paresthesia, limited AROM, and weakness of her LUE in order to restore full, pain-free use of her LUE. Pt is very motivated. Occupational Therapy Treatment Plan - OP Potential Rehabilitation Good Potential Set Goals Goals Set with Yes Patient Goals Goals By 01/01/25, pt will: 1. Pt will be independent and compliant with HEP in order to resume full, pain-free use of the involved UE. By 03/01/25, pt will: 2. Pt will demonstrate full, pain-free AROM of the involved UE in order to improve ability to grasp and hold. 3. Pt will demonstrate pain-free squeak rattle and leak repairer and pinch strength comparable to the uninvolved side in order to improve functional grasp, hold, reach, and lifting ability needed to complete self-care, leisure tasks, and work activities. 4. Pt will be able to sleep throughout the night without being awakened due to pain/paresthesia indicating healing of the median nn irritation. 5. Pt will be able to resume sewing, utilizing hand tools and all food prep tasks as well as the ability to clasp and release car seat regianldo without pain or weakness. Treatment Plan Treatment Plan Evaluation,Edema Control,Iontophoresis with Dexamethasone Sodium Phosphate 1 mL (4mg per mL),Joint Mobilization,Manual Therapy,Ultrasound,Wound Care/Scar Management,Therapeutic Exercise,Therapeutic Activities, Self Care/Home Management,Education Expected Frequency 1-2x Week Expected Duration 10-12 wks Home Program Home Program Home Program Initiated Home Program Provided training and practice in HEP for prayer Specifics stretch, wrist extension stretch, wrist flexion stretches in order to improve wrist ROM as well as mobilization / stretch of scar tissue and fascial restrictions. Following demo, pt is able to complete all exs with minimal cues. Pt was also provided instruction in contrast bath to mobilize fluid and reduce swelling in the LUE. Pt was provided with written instructions for use at home as well. Certification Certification Statement I Certify That: Therapy Services Provided,Therapy Plan Established, Therapy Plan Reviewed Certification Information Clinic ID # [id number] Initial 12/01/24 Certification Date Recertification Due 03/01/25 Date Provider Signature Yes Required Provider Signature POC & Medical Necessity Shows Agreement With Physician NPI Number Write NPI# Here Physician Comment/ Comment or Changes Change Physician Signature Please Sign/Date Here & Date Requested
== END 2025-02-02 16:47 | disposition home or self-care (01) ==
PROVIDERS: PCP Family Medicine; Visit Provider Orthopaedic Surgery Sports Medicine
DX: Z48.89 Encounter for other specified surgical aftercare (principal); M79.642 Pain in left hand; Z51.89 Encounter for other specified aftercare
CPT/HCPCS: 82607; 82728; 83540; 83550; 97035; 97110; 97140; 97165; 97535; X5282

== ENCOUNTER 2025-04-07 10:31 | Outpatient (CLI) | payer OTHER, SELFPAY ==
--- NOTE | 2025-04-07 10:45 | CRLHL7_ITS ---
For Patients: As a result of the Century Cures Act, medical imaging exams and procedure reports are released immediately into your electronic medical record. You may view this report before your referring provider. If you have questions, please contact your health care provider. CLINICAL HISTORY: OTHER ABNORMALITY OF RED BLOOD CELLS COMPARISON: none TECHNIQUE: Real time mukherjee scale imaging and color Doppler analysis was performed of the abdomen. FINDINGS: Hyperechoic solid lesion within the liver measures 3.3 x 1.3 x 1.6 cm. Circumscribed cyst is present with a few internal septations within the liver and measures 5.2 x 3.4 x 5.3 cm. The spleen is of normal size. The pancreas appears normal. The proximal abdominal aorta and IVC appear normal. There is no evidence of ascites. The gallbladder is of normal size and there is no evidence of sludge or stones within the gallbladder lumen. The gallbladder wall measures 1 mm in thickness. The common bile duct measures 6 mm in size within the lore hepatis. The kidneys appear symmetric. The right kidney measures 11.0 cm in length and the left kidney measures 11.3 cm. There is no evidence of a renal calculus or hydronephrosis. IMPRESSION: Probable intrahepatic hemangioma measures 3.3 cm. Probable benign cyst with internal septations within the liver measuring 5.3 cm. MRI of the liver recommended for confirmation. Remainder unremarkable. Dictated by Westley Vyas MD @ 04/07/2025 11:18:46 AM (Electronically Signed)
== END 2025-04-07 10:32 | disposition home or self-care (01) ==
LOC: US 10:31
PROVIDERS: PCP Family Medicine; Visit Provider Internal Medicine Hematology & Oncology
DX: R71.8 Other abnormality of red blood cells (principal); D72.819 Decreased white blood cell count, unspecified
CPT/HCPCS: 76700

== ENCOUNTER 2025-04-09 09:14 | Outpatient (CLI) | payer OTHER, SELFPAY ==
[2025-04-09 09:44] VITALS: BMI 23.0
[2025-04-09 09:56] VITALS: BP 132/70; PULSE 76; RESP 16; O2SAT 99
[2025-04-09 10:35] VITALS: BP 107/65; PULSE 63; RESP 16; O2SAT 95
--- NOTE | 2025-04-09 10:37 | P.ANES_ITS ---
Anesthesia Charges Start Date/Time Anesthesia Start Date: 04/09/25 Anesthesia Start Time: 10:15 Stop Date/Time Anesthesia Stop Date: 04/09/25 Anesthesia Stop Time: 10:35 Coding CPT Codes CPT Codes: ANESTH BONE ASPIRATE/BX - 21949 ([id number]) P1 - NORMAL HEALTHY PATIENT, QK - TORTS LAW PROFESSOR 2-4 CNCRNT ANES PROC, QX - FIREBRICK LAYER HELPER SVJesús W/ MED DIRECTION
--- NOTE | 2025-04-09 10:37 | W.ANESCHARGE ---
Anesthesia Charges Start Date/Time Anesthesia Start Date: 04/09/25 Anesthesia Start Time: 10:15 Stop Date/Time Anesthesia Stop Date: 04/09/25 Anesthesia Stop Time: 10:35 Coding CPT Codes CPT Codes: ANESTH BONE ASPIRATE/BX - 55307 ([id number]) P1 - NORMAL HEALTHY PATIENT, QK - FISH CAKE MAKER 2-4 CNCRNT ANES PROC, QX - FREIGHT WEIGHER SVJesús W/ MED DIRECTION
--- NOTE | 2025-04-09 10:39 | P.ANES_ITS ---
Anesthesia Charges Start Date/Time Anesthesia Start Date: 04/09/25 Anesthesia Start Time: 10:15 Stop Date/Time Anesthesia Stop Date: 04/09/25 Anesthesia Stop Time: 10:35 Coding CPT Codes CPT Codes: ANESTH BONE ASPIRATE/BX - 79565 ([id number]) QK - DIRECTOR OF GRANTS 2-4 CNCRNT ANES PROC, QX - DIRECTOR COLLEGE SVC W/ MED DIRECTION, P1 - NORMAL HEALTHY PATIENT
--- NOTE | 2025-04-09 10:39 | W.ANESCHARGE ---
Anesthesia Charges Start Date/Time Anesthesia Start Date: 04/09/25 Anesthesia Start Time: 10:15 Stop Date/Time Anesthesia Stop Date: 04/09/25 Anesthesia Stop Time: 10:35 Coding CPT Codes CPT Codes: ANESTH BONE ASPIRATE/BX - 14626 ([id number]) QK - UNIT SUPPORT REPRESENTATIVE 2-4 CNCRNT ANES PROC, QX - SHEARING SUPERVISOR SVC W/ MED DIRECTION, P1 - NORMAL HEALTHY PATIENT
[2025-04-09 10:45] VITALS: BP 109/67; PULSE 67; RESP 16; O2SAT 97
[2025-04-09 10:45] LABS: Hematocrit* 36.9 % (33.0-51.0); Hemoglobin* 12.3 gm/dL (12.0-16.0); Immature Granulocytes Abs Auto 0.00 K/uL (0.00-0.30); Immature Granulocytes Pct Auto 0.0 %; Immature Reticulocyte Fraction 11.0 % (3.0-15.9); Mean Corpuscular HGB Conc 33 gm/dL (32-36); Mean Corpuscular Hemoglobin 33 pg (26-34); Mean Corpuscular Volume 99 fL (80-100); RDW Coefficient of Variation % 12.7 % (11.5-15.5); Red Blood Count* 3.73 m/uL (4.00-5.20); Reticulocyte Hemoglobin Equivi 34.8 pg (29.0-35.0); Reticulocytes Absolute 0.05 # (0.03-0.08); White Blood Count* 3.12 K/uL (4.50-11.00)
[2025-04-09 10:55] VITALS: BP 112/69; PULSE 62; RESP 16; O2SAT 96
[2025-04-09 11:06] LABS: Lymphocytes Absolute Auto 1.10 K/uL (0.90-2.90); Slide Review Reflex No
== END 2025-04-09 11:21 | disposition home or self-care (01) ==
LOC: OP CLINIC 09:15
PROVIDERS: PCP Family Medicine; Visit Provider Internal Medicine Hematology & Oncology
DX: D72.819 Decreased white blood cell count, unspecified (principal)
CPT/HCPCS: 01112; 36415; 38222; 85025; 85045; J1644; J2003; J2704

== ENCOUNTER 2025-04-23 12:43 | Outpatient (CLI) | payer OTHER, SELFPAY ==
--- NOTE | 2025-04-23 13:00 | CRLHL7_ITS ---
For Patients: As a result of the Century Cures Act, medical imaging exams and procedure reports are released immediately into your electronic medical record. You may view this report before your referring provider. If you have questions, please contact your health care provider. INDICATION: Decreased white blood cell count, follow-up liver lesion on prior ultrasound TECHNIQUE: 1.5 T MRI of the abdomen performed with pre and postcontrast T1 weighted imaging; T2 weighted imaging; in and out of phase imaging; diffusion weighted imaging. 20 mL Dotarem IV COMPARISON: Abdominal ultrasound 04/07/2025 FINDINGS: Lungs: The lung bases are clear. No pleural or pericardial effusion. Liver: Homogeneous liver parenchyma. Scattered hepatic cysts with a dominant bilobed cyst in the right hepatic lobe containing a thin internal septation measuring up to 5.3 cm. Immediately anterior to this, there is an ill-defined T2 intermediate lobulated lesion measuring 0.9 x 1.9 cm (8/9) which is hypoenhancing on most sequences and with scattered nodular enhancement on delayed postcontrast sequences. There may be slight signal dropout within this region on out of phase imaging. An ill-defined T2 intermediate lesion in the right inferior hepatic lobe measuring 0.6 cm (8/20), it is difficult to characterize given small size, however may demonstrate similar postcontrast characteristics. Biliary tree and gallbladder: No intrahepatic biliary dilation, top-normal common bile duct measuring up to 8 mm, nonspecific. Fluid-filled gallbladder without stones. Spleen: Unremarkable Pancreas: Normal pancreatic parenchyma. No pancreatic masses. No pancreatic duct dilation. Adrenal glands: Unremarkable. Kidneys and ureters: No renal masses or hydronephrosis. GI tract: No evidence of obstruction or inflammation. Vasculature: The IVC and aorta are patent. No abdominal aortic aneurysm. Lymph nodes: No lymphadenopathy. Abdominal wall: Unremarkable Bones: Heterogeneously enhancing and diffusion restricting lesion in the posterior right iliac bone measuring 1.7 x 2.7 cm (/) IMPRESSION: 1. At least 2 ill-defined right hepatic lobe lesions measuring up to 1.9 cm are indeterminate, although may represent atypical hemangiomas or regions of fatty deposition, in the absence of malignancy history. Consider follow-up MRI in 6 months to assess stability. 2. Indeterminate right posterior iliac bone lesion is suboptimally characterized on this exam, although may represent a focus of red marrow reconversion. In the absence of point tenderness to suggest underlying fracture, consider further evaluation with dedicated MSK protocol pelvic MRI. 3. Multiple scattered hepatic cysts, with a dominant bilobed right hepatic cyst measuring up to 5.3 cm. 4. Nonspecific top-normal common bile duct caliber measuring up to 8 mm. No evidence of stone or stricture. Consider correlation with biliary labs. Dictated by Velia Sorensen MD @ 04/26/2025 1:30:40 PM (Electronically Signed)
== END 2025-04-23 12:44 | disposition home or self-care (01) ==
LOC: MRI 12:43
PROVIDERS: PCP Family Medicine; Visit Provider Internal Medicine Hematology & Oncology
DX: K76.89 Other specified diseases of liver (principal); M85.80 Other specified disorders of bone density and structure, unspecified site; D72.819 Decreased white blood cell count, unspecified
CPT/HCPCS: 74183; A9575